=== PATIENT | female | born 1960 | race Two or more races ===

== ENCOUNTER 2024-08-25 12:41 | Emergency (ER) | payer OTHER, SELFPAY ==
[2024-08-25 12:54] VITALS: BP 138/67; PULSE 62; RESP 18; TEMP 36.4; O2SAT 100
--- NOTE | 2024-08-25 14:56 | ED_ITS ---
HPI - General Adult General Chief complaint: Unspecified Stated complaint: needs HTN meds refilled Time Seen by Provider: 08/25/24 14:29 History of Present Illness HPI narrative: [place] just came to [place] and is with son and has a doctor's appointment with new doc in a few days but is out of amlodipine. Pt ok on her b merle until she is seen. Pt has no complaints. Related Data Allergies Allergy/AdvReac Type Severity Reaction Status Date / Time No Known Allergies Allergy Verified 08/25/24 14:00 Review of Systems Review of Systems: All systems reviewed & are unremarkable except as noted in HPI and below Exam Const: General: cooperative, healthy appearing and no acute distress HENMT: Mouth: Yes Normal oral and palatal mucosa present Throat: posterior oropharynx normal Neck: Neck: normal visual inspection Chest: Chest palpation & inspection: normal inspection of the chest Resp: Effort & Inspection: normal respiratory effort Auscultation: clear to auscultation bilaterally Cardio: Rate: regular rate Rhythm: regular rhythm GI: Inspection: normal to inspection GI Palp: Yes abdominal tenderness Auscultation: normal bowel sounds Skin: General skin exam: normal color and no rashes or lesions noted Lesions: no lesions Rashes: no rashes Neuro: General: patient oriented x3, no meningeal signs, no focal motor deficits and CN's II-XI intact bilaterally Speech: normal speech Extrem: General: normal to inspection and no clubbing, cyanosis or edema Course Vital Signs Vital signs: Vital Signs Temperature 97.6 F 08/25/24 12:54 Pulse Rate 62 08/25/24 12:54 Respiratory Rate 18 08/25/24 12:54 Blood Pressure 138/67 08/25/24 12:54 Pulse Oximetry 100 08/25/24 12:54 Temperature 97.6 F 08/25/24 12:54 Pulse Rate 62 08/25/24 12:54 Respiratory Rate 18 08/25/24 12:54 Blood Pressure 138/67 08/25/24 12:54 Pulse Oximetry 100 08/25/24 12:54 Medical Decision Making [facility] Narrative Medical decision making narrative: Pt just needs refill on amlodipine 10 mg until she can see her new pcp. Vital Signs Vital Signs: Vital Signs Temperature 97.6 F 08/25/24 12:54 Pulse Rate 62 08/25/24 12:54 Respiratory Rate 18 08/25/24 12:54 Blood Pressure 138/67 08/25/24 12:54 Pulse Oximetry 100 08/25/24 12:54 Temperature 97.6 F 08/25/24 12:54 Pulse Rate 62 08/25/24 12:54 Respiratory Rate 18 08/25/24 12:54 Blood Pressure 138/67 08/25/24 12:54 Pulse Oximetry 100 08/25/24 12:54 Discharge Plan Discharge Clinical Impression: Hypertension Patient Disposition: Home, Self-Care Condition: Stable Instructions: Antibiotic Form, Hypertension (ED) Patient Language: Belarusian Prescriptions: New amlodipine 10 mg tablet 10 mg PO DAILY Qty: 14 0RF Follow-up/Referrals: UNKNOWN,DOCTOR [Primary Care Provider] -
--- OUTSIDE RECORDS SUMMARY | 2024-08-25 17:20 | XMS_ITS | Encounter Summary ---
Author Organization [facility] Address [address] [place] [id number] Care Team Providers Care New Order Clerk Name Role Phone Unavailable Primary Care Provider Unavailabl e Reason for Visit * Reason Onset Date Comments Medication 08/25/2024 Encounter Details Date Type Department Care Team (Late st Contact Info) Description 08/25/2024 Telephone [facility] Family Medicine - [place] [phone] Emily Landeros PA-C [address] [place] [phone] Medication Social History Tobacco Use Types Packs/Day Years Used Date Smoking Tobacco: Never Assessed Comments Unknown Sex and Gender Information Value Date Recorded Sex Assigned at Not on file Legal Sex Female 9:53 AM CDT Gender Identity Not on file Sexual Orientation Not on file documented as of this encounter Progress Notes * Salome Kearns MA - 08/25/2024 12:58 PM CDT Pt was called, spoke to son. Son was informed that patient has never seen Emily before and meds can't be prescribed until appt. 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 Son was advised to call office in the am to see if we have openings. Son V/U and stated that he will take mom to ER. * Eulogio Caldwell - 08/25/2024 12:24 PM CDT Vidya called and advised his mom is completely out of her hypertension medicine. Patricia has an appt next week with Emily. He advised they already went to and they couldn't help them with getting her some meds. The medicine is Coveram 10 mg by 10 mg. He advised they could even stop by the office to show Emily what the medicine looks like. CB# [phone] documented in this encounter Plan of Treatment Upcoming Encounters Date Type Department Care Team (Late st Contact Info) Description 09/04/2024 2:00 PM CDT Office Visit [facility] Family [facility] - [place] [address] [place] [phone] Emily Landeros PA-C [address] [place] [phone] documented as of this encounter Visit Diagnoses Not on filedocumented in this encounter
--- OUTSIDE RECORDS SUMMARY | 2024-08-25 17:20 | XMS_ITS | Clinical Summary ---
Author Organization [facility] Address [facility] [place] [address] Care Team Providers Care Sprayer Automatic Spray Machine Name Role Phone Unavailable Primary Care Provider Unavailabl e Encounters Date Type Department Care Team Description 08/25/[address] [phone] Emily Landeros PA-C Medication from Last 3 Months Social History Tobacco Use Types Packs/Day Years Used Date Smoking Tobacco: Never Assessed Comments Unknown Sex and Gender Information Value Date Recorded Sex Assigned at Not on file Legal Sex Female 9:53 AM CDT Gender Identity Not on file Sexual Orientation Not on file Plan of Treatment Upcoming Encounters Date Type Department Care Team (Late st Contact Info) Description 09/04/2024 2:00 PM CDT Office Visit [address] [phone] Emily Landeros PA-C [address] [place] [phone] Health Maintenance Due Date Last Done Comments Cervical Cancer Screening Pa p Smear (Age 30 to 64) Every 3 Years 1961 Colorectal Cancer Screening Colonoscopy (10 Years) 1961 Annual Physical 01/18/1964 Hepatitis C 1979 DTaP, Tdap and Td Vaccines ( 1 - Tdap) 01/18/1980 Cervical Cancer Screening Pa p with HPV Testing (Age 30 to 64) Every 5 Years 1991 Cervical Cancer Screening with HPV 1991 Mammogram Screening 2001 Zoster Vaccines (1 of 2) 2011 COVID-19 Vaccine (2023-2 5 season) 2024 Influenza Adult (#1) 2024 PHQ-2 (Physician [place]) 06/04/2024 RSV Immunization or 60+ Years (1 - 1-dose 75+ series) 01/18/2036 Meningococcal B Vaccine Aged Out No l onger eligible based on patient's age to complete this topic Meningococcal Vaccine Aged Out No daniel blayne eligible based on patient's age to complete this topic Pneumococcal Vaccine: Pediat rics (0 to 5 Years) and At-Risk Patients (6 to 64 Years) Aged Out No longer eligible b ased on patient's age to complete this topic RSV Immunizations Under 20 Months Aged Out No longer eligible based on patient's age to complete this topic Insurance
== END 2024-08-25 15:23 | disposition home or self-care (01) ==
PROVIDERS: Emergency Provider Emergency Medicine
DX: I10 Essential (primary) hypertension (principal); Z76.0 Encounter for issue of repeat prescription
CPT/HCPCS: 99281

== ENCOUNTER 2024-10-25 10:25 | Emergency (ER) | payer OTHER, SELFPAY ==
--- NOTE | ~2024-10-25 | CT_ITS ---
EXAMINATION: CT brain wo con DATE: 10/25/2024 11:32 INDICATION: Vertigo TECHNIQUE: Computed tomography (CT) of the head was performed without intravenous contrast. Sagittal and coronal reconstructions were performed. The mA was adjusted according to patient size. Iterative reconstruction technique was employed. The dose-length product was 605.33 mGy-cm. COMPARISON: None FINDINGS: No acute intracranial hemorrhage, acute infarction or abnormal extra axial fluid collection. There is mild scattered white matter hypoattenuation consistent with chronic small vessel ischemic disease. Ventricles are normal and symmetric. No mass/mass effect. The orbits, paranasal sinuses and mastoid a ir cells are normal. IMPRESSION: 1. Mild scattered white matter hypoattenuation consistent with chronic small vessel ischemic disease. No acute intracranial process. Reviewed, dictated and finalized at location A. IMPRESSION: 1. Mild scattered white matter hypoattenuation consistent with chronic small ve ssel ischemic disease. No acute intracranial process.
[2024-10-25 10:32] VITALS: BP 194/75; PULSE 80; RESP 16; TEMP 36.7; O2SAT 98
--- NOTE | 2024-10-25 10:41 | ED_ITS ---
HPI - General Adult General Chief complaint: Nausea/Vomiting/Diarrhea Stated complaint: N/V History of Present Illness HPI narrative: 64-year-old female presenting to the emergency department for evaluation for acute onset vertigo. Patient woke up this morning to get out of bed at 4:00 a.m. and she was fine but when patient got out of bed at approximately 9:00 a.m. she was having intense vertigo that caused her to have nausea and vomiting. Patient describe a spinning sensation. Prior history of CVA. Patient has no prior history of vertigo. Patient denies any recent coughs colds or fevers. Patient states that the nausea and vomiting was in response to the dizziness. Patient does speak care back primarily and family is translating. Translating services were offered but they declined. Related Data Home Medications ?Medication ?Instructions ?Recorded ?Confirmed ?Last Taken ?Type lisinopril 2.5 mg tablet 2.5 mg PO DAILY 10/25/24 10/25/24 Unknown History Allergies Allergy/AdvReac Type Severity Reaction Status Date / Time No Known Allergies Allergy Verified 10/25/24 10:41 Review of Systems 2 Review of Systems: All systems reviewed & are unremarkable except as noted in HPI and below Exam 2 Narrative: APPEARANCE: Uncomfortable appearing secondary to dizziness HEAD: normocephalic, atraumatic. EYES: PERRLA/EOMI, conjunctivae clear. NOSE: Normal no drainage EARS:TMS clear with good light reflex. THROAT: Pharynx clear, no exudate. NECK: Supple. No adenopathy, no masses. RESPIRATORY: Airway patent, respirations nonlabored. Clear to auscultation bilaterally, no rales, rhonchi, wheezing. CARDIOVASCULAR: Regular rate and rhythm without murmurs rubs or gallops. ABDOMINAL: Soft, nontender, nondistended, normal bowel sounds MUSCULOSKELETAL: Moves all extremities. Strength/ROM intact, No edema, No calf tenderness. NEURO: Alert. Cranial nerves II through XII intact. Good gait. Good coordination SKIN: Warm, dry. Normal Color Course Vital Signs Vital signs: Vital Signs Temperature 98.0 F 10/25/24 10:32 Pulse Rate 80 10/25/24 10:32 Respiratory Rate 16 10/25/24 10:32 Blood Pressure 194/75 H 10/25/24 10:32 Pulse Oximetry 98 10/25/24 10:32 Oxygen Delivery Room Air 10/25/24 10:32 Temperature 98.0 F 10/25/24 10:32 Pulse Rate 71 10/25/24 11:37 Respiratory Rate 20 10/25/24 11:37 Blood Pressure 174/61 H 10/25/24 11:37 Pulse Oximetry 100 10/25/24 11:37 Oxygen Delivery Room Air 10/25/24 10:32 Medical Decision Making MDM Narrative Medical decision making narrative: 64-year-old female present to the emergency department for evaluation for vertigo. Patient's symptoms were inducible with turning her had open her eyes and moving. Symptoms did improve with rest. Patient is currently afebrile with no leukocytosis hemoglobin of 12.3. Patient has no significant acute abnormalities on the CMP. Patient was treated with IV Benadryl, IV Reglan and p.o. meclizine. Patient was able to ambulate to the bathroom without issues. Patient does feel improved with treatment. Patient family were updated the results of the workup and plan for treatment for home. Patient will be provided meclizine for p.r.n. needs at home and patient will be provided follow-up with ENT. Patient did complain of some left ear discomfort a few days ago with fluid behind the ear. No significant abnormality was seen on her left TM on the ENT exam here Differential Diagnosis Differential Diagnosis: In her urine fraction, otitis media benign positional vertigo, central vertigo TIA, CVA, subdural hematoma, subarachnoid hemorrhage Vital Signs Vital Signs: Vital Signs Temperature 98.0 F 10/25/24 10:32 Pulse Rate 80 10/25/24 10:32 Respiratory Rate 16 10/25/24 10:32 Blood Pressure 194/75 H 10/25/24 10:32 Pulse Oximetry 98 10/25/24 10:32 Oxygen Delivery Room Air 10/25/24 10:32 Temperature 98.0 F 10/25/24 10:32 Pulse Rate 71 10/25/24 11:37 Respiratory Rate 20 10/25/24 11:37 Blood Pressure 174/61 H 10/25/24 11:37 Pulse Oximetry 100 10/25/24 11:37 Oxygen Delivery Room Air 10/25/24 10:32 Lab Data Lab results reviewed: Yes I reviewed the patient's lab results. 10/25/24 11:03 10/25/24 11:03 Labs: Lab Results 10/25/24 10/25/24 Range/Units 11:03 12:31 WBC 9.6 (4.5-10.0) K/mm3 RBC 4.15 L (4.2-5.4) M/mm3 Hgb 12.3 (12.0-15.0) g/dL Hct 37.5 (37.0-47.0) % MCV 90.4 (80-100) fl MCH 29.6 (26-34) pg MCHC 32.8 (32-36) g/dl RDW 12.9 (11.5-14.5) % Plt Count 268 (150-375) k/mm3 MPV 10.3 (7.4-10.4) fl Immature Gran % (Auto) 0.5 (0-0.5) % Neut % (Auto) 56.1 (45.5-73.1) % Lymph % (Auto) 36.9 (18.3-44.2) % [place] % (Auto) 4.9 (2.6-8.5) % Eos % (Auto) 1.0 (0-4.4) % Baso % (Auto) 0.6 (0.2-1.2) % Lymph # (Auto) 3.52 H (0.9-3.2) K/mm3 [place] # (Auto) 0.5 (0.1-0.6) K/mm3 Eos # (Auto) 0.1 (0-0.3) K/mm3 Baso # (Auto) 0.1 (0.0-0.1) K/mm3 Abs Immat Gran (auto) 0.05 H (0.00-0.031) K/mm3 Absolute Neuts (auto) 5.4 (1.3-6.7) K/mm3 Absolute Nucleated RBC 0.000 (0.0-0.012) K/mm3 Nucleated RBC % 0.0 (0.0-0.2) % Sodium 140 (137-145) mmol/L Potassium 3.9 (3.4-5.0) mmol/L Chloride 108 H (98-107) mmol/L Carbon Dioxide 23 (22-30) mmol/L Anion Gap 9 (4-12) mmol/L BUN 27 H (7-17) mg/dL Creatinine 1.18 H (0.7-1.0) mg/dL Estim Creat Clear Calc 48 ml/min Estimated GFR 46 L (59 - ) Glucose 196 H (65-110) mg/dL Lactic Acid 1.3 (0.7-2.0) mmol/L Calcium 9.6 (8.4-10.2) mg/dL Total Bilirubin 0.3 (0.2-1.3) mg/dL AST 29 (14-36) U/L ALT 21 (6-35) U/L Alkaline Phosphatase 77 (38-126) U/L Total Protein 8.0 (6.3-8.2) g/dL Albumin 4.3 (3.5-5.1) g/dL Lipase 170 (23-300) U/L Urine Color Yellow (Yellow) Urine Appearance Clear (Clear) Urine pH 7.5 (5.0-9.0) Ur Specific [place] 1.010 (1.001-1.035) Urine Protein Negative (Negative) mg/dL Urine Glucose (UA) Trace H (Negative) mg/dL Urine Ketones Negative (Negative) mg/dL Ur Blood (Man) Negative (Negative) Urine Nitrate Negative (Negative) Urine Bilirubin Negative (Negative) Urine Urobilinogen 0.2 (<2.0) mg/dL Leukocyte Esterase Rfl Negative (Negative) DAVID/UL Imaging Data Radiologist's impression: Impressions Head CT 10/25/24 11:43 IMPRESSION: 1. Mild scattered white matter hypoattenuation consistent with chronic small vessel ischemic disease. No acute intracranial process. Discharge Plan Discharge Clinical Impression: Benign paroxysmal positional vertigo Patient Disposition: Home Condition: Stable Instructions: Antibiotic Form, Benign Paroxysmal Positional Vertigo (DC) Additional Instructions: Meclizine as needed for vertigo control. Have close follow-up with ENT. If you have any worsening symptoms then please call or return to the emergency department. Patient Language: Upper Sorbian Prescriptions: New meclizine 25 mg tablet 25 mg PO BID PRN (Reason: dizziness) 7 Days Qty: 14 0RF No Action amlodipine 10 mg tablet 10 mg PO DAILY Qty: 14 0RF lisinopril 2.5 mg tablet 2.5 mg PO DAILY Follow-up/Referrals: Roshan,JOVANA Feliz [Primary Care Provider] - Tony Hurtado MD [Physician] -
[2024-10-25] MEDS: ONDANSETRON INJ 4 MG/2 ML VIAL IV PUSH (10:52)
[2024-10-25] MEDS: LACTATED RINGERS 1,000 ML 999 ML IV CONT (10:52)
[2024-10-25] MEDS: METOCLOPRAMIDE HCL INJ 10 MG/2 ML VIAL IV PUSH (10:53)
[2024-10-25] MEDS: diphenhydrAMINE HCl INJ 50 MG/ML VIAL 25 MG IV PUSH (10:53)
[2024-10-25 11:08] LABS: Basophils Absolute Auto 0.1 K/mm3 (0.0-0.1); Basophils Percent Auto 0.6 % (0.2-1.2); Eosinophils Absolute Auto 0.1 K/mm3 (0-0.3); Hematocrit 37.5 % (37.0-47.0); Hemoglobin 12.3 g/dL (12.0-15.0); Immature Granulocyte Absolute 0.05 K/mm3 (0.00-0.031); Immature Granulocyte Percent A 0.5 % (0-0.5); Lymphocytes Absolute Auto 3.52 K/mm3 (0.9-3.2); Lymphocytes Percent Auto 36.9 % (18.3-44.2); Mean Corpuscular HGB Conc 32.8 g/dl (32-36); Mean Corpuscular Hemoglobin 29.6 pg (26-34); Mean Corpuscular Volume 90.4 fl (80-100); Mean Platelet Volume 10.3 fl (7.4-10.4); Monocytes Absolute Auto 0.5 K/mm3 (0.1-0.6); Monocytes Percent Auto 4.9 % (2.6-8.5); Neutrophils Absolute Auto 5.4 K/mm3 (1.3-6.7); Neutrophils Percent Auto 56.1 % (45.5-73.1); Platelet Count Result 268 k/mm3 (150-375); Red Blood Count 4.15 M/mm3 (4.2-5.4); Red Cell Distribution Width 12.9 % (11.5-14.5); White Blood Count 9.6 K/mm3 (4.5-10.0)
[2024-10-25 11:17] LABS: Lactic Acid Reflex 1.3 mmol/L (0.7-2.0)
[2024-10-25 11:18] LABS: Alanine Aminotransferase 21 U/L (6-35); Albumin Level 4.3 g/dL (3.5-5.1); Alkaline Phosphatase 77 U/L (38-126); Anion Gap 9 mmol/L (4-12); Aspartate Amino Transferase 29 U/L (14-36); Bilirubin,Total 0.3 mg/dL (0.2-1.3); Blood Urea Nitrogen 27 mg/dL (7-17); Calcium 9.6 mg/dL (8.4-10.2); Carbon Dioxide 23 mmol/L (22-30); Chloride 108 mmol/L (98-107); Estimated CRCL calculation 48 ml/min; Estimated Glomerular Filt Rate 46; Glucose 196 mg/dL (65-110); Lipase 170 U/L (23-300); Potassium 3.9 mmol/L (3.4-5.0); Sodium 140 mmol/L (137-145)
[2024-10-25] MEDS: MECLIZINE HCL 25 MG TABLET PO (11:34)
[2024-10-25 11:37] VITALS: BP 174/61; PULSE 71; RESP 20; O2SAT 100
[2024-10-25 12:39] LABS: Add Urine Microscopic? NO; Appearance Urine Clear (Clear); Bilirubin Urine Negative (Negative); Blood Urine Negative (Negative); Color Urine Yellow (Yellow); Glucose Urine UA Trace mg/dL (Negative); Ketones Urine Negative (Negative); Leukocyte Esterase Ur Negative LEU/UL (Negative); Nitrate Urine Negative (Negative); Protein Urine Negative (Negative); Urobilinogen Urine 0.2 mg/dL (<2.0); pH Urine 7.5 (5.0-9.0)
== END 2024-10-25 13:26 | disposition home or self-care (01) ==
PROVIDERS: Emergency Provider Emergency Medicine; PCP Physician Assistant
DX: H81.10 Benign paroxysmal vertigo, unspecified ear (principal); Z86.73 Personal history of transient ischemic attack (TIA), and cerebral infarction without residual deficits
CPT/HCPCS: 36415; 70450; 80053; 81003; 83605; 83690; 85025; 96361; 96374; 96375; 99284; A9270; J1200; J2405; J2765; J7120